=== PATIENT | female | born 1965 | race Caucasian/White ===

== ENCOUNTER 2017-09-23 08:57 | Emergency (ER) | payer OTHER ==
[~2017-09-23] VITALS: Ht 160 cm; Wt 76.0 kg
[2017-09-23 09:03] VITALS: BP 124/75; PULSE 81; RESP 16; TEMP 97.9; O2SAT 99
[2017-09-23] MEDS ORDERED: ALPR.25 PO (09:17)
[2017-09-23] MEDS ORDERED: ADDE20 PO (09:17)
--- NOTE | 2017-09-23 09:21 | PD ---
HPI Chief Complaint: Cold / Flu Symptoms Time Seen by Provider: 09:09 Travel History International Travel<30 days: No Contact w/Intl Traveler<30days: No Traveled to known affect area: No History of Present Illness HPI This is a 52-year-old female who presents for evaluation. For the past 4 days while traveling to [place] the patient again experiencing nasal congestion, myalgias, frontal headache. She describes it as a pressure which comes and goes. she has been using [id number] Zyrtec, Flonase, as well as Yolie Louis which have been helping with her symptoms. She currently is asymptomatic. She denies sore throat, cough. She has not checked her temperature. She has no other complaints at this time. PFSH Past Medical History Anxiety: Yes Heart Rhythm Problems: No Cardiac Catheterization: No Cardiovascular Problems: No High Cholesterol: No Congestive Heart Failure: No Diabetes: No Diminished Hearing: No Heparin Induced Thrombocytopen: No Hypertension: No Tetanus Vaccination: Unknown ?: Not Menopausal: Yes : 4 Para: 3 Miscarriage: 1 Past Surgical History Abdominal Surgery: Yes (C-SEC X 3) Section: Yes (X 3) Cholecystectomy: Yes Coronary Artery Bypass Graft: No Social History Alcohol Use: Yes (soc) Tobacco Use: No Substance Use: No Allergies-Medications (Allergen,Severity, Reaction): Coded Allergies: No Known Allergies (Unverified Adverse Reaction, Unknown, 09/23/17) Reported Meds & Prescriptions Reported Meds & Active Scripts Active Amoxicillin 875 Mg Tab 875 Mg PO BID 10 Days Reported Xanax (Alprazolam) 0.25 Mg Tab 0.25 Mg PO Q6H PRN Adderall (Amphetamine-Dextroamphetamine) 20 Mg Tab 20 Mg PO DAILY Avoid late evening doses. Space doses at least 4 to 6 hours if more than once/day dosing. Review of Systems Except as stated in HPI: all other systems reviewed are Neg Physical Exam Narrative GENERAL: Well-developed well-nourished female in no acute distress SKIN: Warm and dry. HEAD: Atraumatic. Normocephalic. EYES: Pupils equal and round. No scleral icterus. No injection or drainage. ENT: No nasal bleeding or discharge. Mucous membranes pink and moist. There is some tenderness to palpation over the maxillary and frontal sinuses bilaterally. There is no oral pharyngeal erythema or exudate. Tympanic membranes reveal normal anatomic landmarks without erythema or air-fluid level. NECK: Trachea midline. No JVD. CARDIOVASCULAR: Regular rate and rhythm. No murmur appreciated. RESPIRATORY: No accessory muscle use. Clear to auscultation. Breath sounds equal bilaterally. GASTROINTESTINAL: Abdomen soft, non-tender, nondistended. Hepatic and splenic margins not palpable. MUSCULOSKELETAL: No obvious deformities. No clubbing. No cyanosis. No edema. NEUROLOGICAL: Awake and alert. No obvious cranial nerve deficits. Motor grossly within normal limits. Normal speech. PSYCHIATRIC: Appropriate mood and affect; insight and judgment normal. Data Data Last Documented VS Vital Signs Date Time Temp Pulse Resp B/P (MAP) Pulse Ox O2 Delivery O2 Flow Rate FiO2 09/23/17 09:03 97.9 81 16 124/75 (91) 99 Orders Orders Influenzae A/B Antigen (09/23/17 09:17) Ibuprofen (Motrin) (09/23/17 10:15) Ed Discharge Order (09/23/17 10:02) MDM Medical Decision Making Medical Screen Exam Complete: Yes Emergency Medical Condition: Yes Medical Record Reviewed: Yes Differential Diagnosis Viral syndrome, influenza, sinusitis, rhinitis, tension headache, subarachnoid hemorrhage, intracranial mass Narrative Course 52-year-old female presents for evaluation of 4 days of myalgias, frontal headache, nasal congestion. Currently asymptomatic, symptom improvement Zyrtec , Flonase and Jade pot. Physical examination is reassuring. Influenza antigen test was performed and is negative. Upon recheck the patient reports her myalgias have returned so she be given a dose of ibuprofen which she reports has helped with symptom improvement at home. Her symptoms are consistent with sinusitis. Recommended continuing conservative therapy and she will be given a prescription for amoxicillin if symptoms persist. Diagnosis Primary Impression: Sinusitis Additional Instructions: Continue using at home Flonase, antihistamines, [place] pot. If symptoms do not improve over the next few days, begin amoxicillin and take until complete. Stay well hydrated and well-nourished. Follow-up with primary care physician and return for any acutely new or worsening symptoms. Med/Other Pt SpecificInfo: Prescription(s) given Scripts Amoxicillin (Amoxicillin) 875 Mg Tab 875 MG PO BID for Infection for 10 Days, #20 TAB 0 Refills Prov: Luz William MD 09/23/17 Disposition: 01 DISCHARGE HOME Condition: Stable Lorne Cool Sep 23, 2017 09:21
[2017-09-23] MEDS ORDERED: AMOX875T PO (10:02)
[2017-09-23] MEDS ORDERED: IBUPROFEN 600 MG TAB PO ONE (10:15)
== END 2017-09-23 10:22 | disposition home or self-care (01) ==
LOC: PHEFT 08:57
DX: J32.9 Chronic sinusitis, unspecified (principal); F41.9 Anxiety disorder, unspecified
CPT/HCPCS: 87804; 99283